=== PATIENT | male | born 1965 | race Hispanic/Latino ===

== ENCOUNTER 2018-11-03 11:03 | Day surgery (SDC) | payer SELFPAY ==
[2018-11-03] MEDS ORDERED: NA CHLORIDE 0.9% 1,000 ML ONE (11:46)
[2018-11-03] MEDS ORDERED: PROPOFOL 200 MG/20 ML VIAL IV ONE (12:45)
[2018-11-03] MEDS ORDERED: LIDOCAINE 1% MPF 2 ML AMPULE ONE (12:46)
--- NOTE | 2018-11-04 00:36 | OP ---
Surgeon: Armaan Flowers MD Procedure To Be Performed: Colonoscopy. Performing Physician: Armaan Flowers MD. Indication For Procedure: Screening. Plan For Anesthesia: Monitored anesthesia care. Complexity: Average. Technique: After obtaining informed consent from the patient and explaining risks and complications which include, but are not limited to bleeding, infection, perforation, and anesthesia complication, the patient was placed in left lateral position and sedation was given. From then on, a digital rect al exam was performed. Scope was inserted into the rectum and carefully guided up to the terminal il eum. Subsequently, the scope gradually withdrawn while carefully examining the mucosa. Scope withdr awal time was 12 minutes. Quality Of Prep: Segmental poor. Findings: Digital rectal exam was normal. No gross lesion seen from the rectum to the cecum. The t erminal ileum appeared normal. Retroflexion revealed grade 1 internal hemorrhoids. Complications: None. Tolerance To Anesthesia: Excellent. Postop Diagnosis: No gross lesions seen on colonoscopy. However, prep was not ideal. Plan: EGD as planned on the . Follow up in the GI clinic after above. Repeat colonoscopy in 3 to 4 years due to limited prep. US/MODL Voice ID: [id number] Report ID: [id number]
== END 2018-11-03 13:45 | disposition home or self-care (01) ==
LOC: ENDO 11:03
PROVIDERS: ATTEND Internal Medicine Gastroenterology
PROC: 0DJD8ZZ Inspection of Lower Intestinal Tract, Via Natural or Artificial Opening Endoscopic (ICD-10-PCS; principal; 2018-11-03 12:30)
DX: R10.9 Unspecified abdominal pain (principal); K59.00 Constipation, unspecified; K64.8 Other hemorrhoids; E11.9 Type 2 diabetes mellitus without complications; Z68.25 Body mass index [BMI] 25.0-25.9, adult; E66.3 Overweight; Z79.84 Long term (current) use of oral hypoglycemic drugs; Z80.0 Family history of malignant neoplasm of digestive organs; Z83.3 Family history of diabetes mellitus
CPT/HCPCS: 82962; J2001; J2704; J7030